=== PATIENT | female | born 1930 | race Caucasian/White ===

== ENCOUNTER 2016-11-28 07:44 | Inpatient (IN) | payer OTHER ==
[~2016-11-28] VITALS: Ht 157.5 cm; Wt 49.9 kg
--- NOTE | 2016-11-28 07:45 | NUR ---
PT BIB RA D/T MECHANICAL FALL AT HOME, C/O LEFT HIP PAIN. PATIENT IN BED, SAFETY AND COMFORT MEASURES PROVIDED, AWAITING MD ORDERS, WILL MONITOR.
--- NOTE | 2016-11-28 08:30 | NUR ---
XRAY TAKEN OF LEFT PELVIS AND LEFT ANKLE. WILL MONITOR.
[2016-11-28 11:03] LABS: BASOPHILS # (AUTO) 0.2 /CMM (0.0-0.2); BASOPHILS % (AUTO) 2.1 % (0.0-2.0); EOSINOPHILS % (AUTO) 0.1 % (0.0-6.0); HEMATOCRIT 45 % (33-45); HEMOGLOBIN 14.7 g/dL (11.5-14.8); LYMPHOCYTES # (AUTO) 0.7 /CMM (0.8-4.8); LYMPHOCYTES % (AUTO) 6.2 % (20.0-44.0); MEAN CORPUSCULAR HEMOGLOBIN 30 PG (26.0-33.0); MEAN CORPUSCULAR HGB CONC 33 g/dl (31.0-36.0); MEAN CORPUSCULAR VOLUME 91 fL (82-100); MONOCYTES # (AUTO) 0.6 /CMM (0.1-1.30); MONOCYTES % (AUTO) 5.1 % (2.0-12.0); NEUTROPHILS # (AUTO) 9.7 /CMM (1.8-8.9); NEUTROPHILS % (AUTO) 86.5 % (43.0-81.0); PLATELET COUNT (AUTO) 189 /CMM (150-450); RDW COEFFICIENT OF VARIATION 12.4 (11.5-15.0); RED BLOOD CELL COUNT(AUTO) 4.89 MIL/uL (4.0-5.2); WHITE BLOOD COUNT (AUTO) 11.2 K/uL (4.3-11.0)
[2016-11-28 11:10] LABS: CALCIUM, SERUM 8.9 mg/dL (8.5-10.1); CARBON DIOXIDE 27 mmol/L (21-32); CHLORIDE 108 mmol/L (98-107); CREATININE 1.1 mg/dL (0.6-1.3); GLUCOSE 100 mg/dL (74-106); SODIUM SERUM 143 mmol/L (136-145); UREA NITROGEN, BLOOD 27 mg/dL (7-18)
--- NOTE | 2016-11-28 11:13 | NUR ---
CALLED NURSING SUP. FOR MS BED
[2016-11-28 11:17] LABS: ALANINE AMINOTRANSFERASE 24 U/L (12-78); ALBUMIN 3.5 g/dL (3.4-5.0); ALKALINE PHOSPHATASE 49 U/L (46-116); ASPARTATE AMINOTRANSFERASE 25 U/L (15-37); BILIRUBIN,DIRECT 0.1 mg/dL (0.0-0.2); BILIRUBIN,TOTAL 0.7 mg/dL (0.2-1.0); TOTAL PROTEIN, SERUM 6.9 g/dL (6.4-8.2)
--- NOTE | 2016-11-28 11:30 | NUR ---
NEW IV STARTED, LAC, 18 GAUGE. H.L.
--- NOTE | 2016-11-28 11:38 | NUR ---
[facility] PAGED, DRY WALL APPLICATOR
[2016-11-28 11:59] LABS: APPEARANCE,URINE Clear (CLEAR); BILIRUBIN,URINE Negative (NEGATIVE); BLOOD, URINE Negative Ery/uL (NEGATIVE); COLOR,URINE Yellow (YELLOW); KETONES,URINE Trace (NEGATIVE); LEUKOCYTE ESTERASE ,URINE Negative (NEGATIVE); NITRITE, URINE Negative (NEGATIVE); PROTEIN,URINE Negative (NEGATIVE); UGLUCOSE Negative (NEGATIVE); UROBILINOGEN,URINE 0.2 EU/dL (0.2)
[2016-11-28] MEDS ORDERED: ALEN70TA45 PO (12:06)
[2016-11-28 12:08] LABS: BACTERIA,URINE None seen /HPF (None Seen); RBC,URINE 0-2 /HPF (0-2); WBC,URINE 0-3 /HPF (0-3)
[2016-11-28 12:09] LABS: SQUAMOUS EPITHELIAL CELL,UR Few /HPF (None Seen)
--- NOTE | 2016-11-28 12:10 | NUR ---
REPORT GIVEN TO RNMARYJANE. PATIENT TO BE ADMITTED TO [facility]. REMAINS STABLE, TRANSFERRED VIA STRETCHER.
[2016-11-28 12:30] VITALS: BP 128/66
--- NOTE | 2016-11-28 12:30 | NUR ---
MS RN NOTES RECEIVED PATIENT IN BED NO SOB OR ACUTE DISTRESS. NOTED WITH BRUISING TO BILATERAL LOWER EXTREMITIES AND UPPER EXTREMITAS. PATIENT REPORTS A FALL SHE SUFFERED AT HER [facility]. STATES SHE LIVES THERE BY HERSELF HAS A CAREGIVER NAME RENALDO WHO VISITS [facility] CAREGIVER WHO CARES FOR HER WHEN RENALDO IS NOT AVAILABLE. PATIENTS POWER OF DOROTHEA IS ALSO RENALDO. PATIENT IN STABLE CONDITION. WAITING FOR ORDERS. PERIPHERAL IV INTACT PATENT ON LEFT AC. BED IN LOW LOCKED POSITION. CALL LIGHT WITHIN REACH. ORIENTED TO ROOM. WILL CONTINUE TO MONITOR.
--- NOTE | 2016-11-28 13:30 | NUR ---
MS RN NOTES PATIENT SEEN AND EVALUATED BY DR. WASSERMAN ORDERS NOTED AND CARRIED OUT.
[2016-11-28] MEDS ORDERED: ACETAMINOPHEN 325 MG TABLET PO PRN (14:00)
[2016-11-28] MEDS ORDERED: ONDANSETRON HCL/PF 4 MG/2 ML VIAL IVP PRN (14:00)
[2016-11-28] MEDS ORDERED: Z GUARD REMEDY 2 OZ OINT TP PRN (14:00)
[2016-11-28] MEDS ORDERED: MAGNESIUM HYDROXIDE 30 ML UDC PO PRN (14:00)
[2016-11-28] MEDS ORDERED: MAG HYDROX/AL HYDROX/SIMETH 30 ML UDC PO PRN (14:00)
[2016-11-28] MEDS ORDERED: HYDROCODONE/APAP 5/325MG 1 EACH TABLET PO PRN (14:00)
[2016-11-28] MEDS ORDERED: IV SET PRIMARY PUMP SET 1 EA INFUS.SET MC ONE (14:35)
[2016-11-28] MEDS: PANTOPRAZOLE 40 MG TABLET.DR PO SCH (14:43)
[2016-11-28] MEDS: ENOXAPARIN SODIUM 40 MG/0.4 ML DISP.SYRIN SQ SCH (14:43)
[2016-11-28] MEDS: IV NS 0.9% 1,000 ML IV PRN (14:44)
[2016-11-28 16:00] VITALS: BP_SYST 116; BP_SYST 124; BP_DIAS 58; BP_DIAS 70
--- NOTE | 2016-11-28 18:06 | NUR ---
MS RN NOTES PATIENT IN BED RESTING NO SOB OR ACUTE DISTRESS NOTED. ALL DUE MEDICATIONS ADMINISTERED. ALL NEEDS MET PERIPHERAL IV INTACT PATENT ON LEFT AC. WILL ENDORSE CARE TO PM SHIFT.
--- NOTE | 2016-11-28 19:30 | NUR ---
ms rn note received patient awake and alert x2 in bed. Denies any pain or discomfort at this time. No respiratory distress or sob noted. iv site intact with no redness noted. Bed locked and in lowest position. side rails up, call light within reach. will continue to monitor.
[2016-11-28 20:00] VITALS: BP 121/56
--- NOTE | 2016-11-29 06:26 | NUR ---
MS RN NOTE PATIENT RESTING COMFORTABLY. ALL NEEDS MET AND ATTENDED TO. KEPT CLEAN DRY AND COMFORTABLE. WILL ENDORSE TO DAY SHIFT FOR DELIO.
[2016-11-29 06:43] LABS: BASOPHILS % (AUTO) 0.4 % (0.0-2.0); EOSINOPHILS # (AUTO) 0.2 /CMM (0.0-0.7); EOSINOPHILS % (AUTO) 2.4 % (0.0-6.0); HEMATOCRIT 38 % (33-45); LYMPHOCYTES % (AUTO) 16.1 % (20.0-44.0); MEAN CORPUSCULAR HEMOGLOBIN 32 PG (26.0-33.0); MEAN CORPUSCULAR HGB CONC 34 g/dl (31.0-36.0); MEAN CORPUSCULAR VOLUME 92 fL (82-100); MONOCYTES # (AUTO) 0.5 /CMM (0.1-1.30); MONOCYTES % (AUTO) 7.2 % (2.0-12.0); NEUTROPHILS # (AUTO) 4.8 /CMM (1.8-8.9); NEUTROPHILS % (AUTO) 73.9 % (43.0-81.0); PLATELET COUNT (AUTO) 140 /CMM (150-450); RDW COEFFICIENT OF VARIATION 13.3 (11.5-15.0); WHITE BLOOD COUNT (AUTO) 6.5 K/uL (4.3-11.0)
[2016-11-29 07:05] LABS: CHOLESTEROL 134 mg/dL (<200); HDL CHOLESTEROL 57 mg/dL (40-60); LDL 59 mg/dL (0-99); TRIGLYCERIDES 73 mg/dL (30-150)
[2016-11-29 07:09] LABS: ALANINE AMINOTRANSFERASE 21 U/L (12-78); ALBUMIN 2.8 g/dL (3.4-5.0); ALKALINE PHOSPHATASE 41 U/L (46-116); ASPARTATE AMINOTRANSFERASE 22 U/L (15-37); BILIRUBIN,TOTAL 0.6 mg/dL (0.2-1.0); CALCIUM, SERUM 8.2 mg/dL (8.5-10.1); CARBON DIOXIDE 25 mmol/L (21-32); CHLORIDE 110 mmol/L (98-107); CREATININE 0.9 mg/dL (0.6-1.3); GLUCOSE 97 mg/dL (74-106); MAGNESIUM 2.1 mg/dL (1.8-2.4); PHOSPHORUS 3.3 mg/dL (2.5-4.9); POTASSIUM 4.1 mmol/L (3.5-5.1); SODIUM SERUM 144 mmol/L (136-145); TOTAL PROTEIN, SERUM 5.9 g/dL (6.4-8.2); UREA NITROGEN, BLOOD 29 mg/dL (7-18)
[2016-11-29 08:00] VITALS: BP 118/65
[2016-11-29] MEDS: ENOXAPARIN SODIUM 40 MG/0.4 ML DISP.SYRIN SQ SCH (08:54)
[2016-11-29] MEDS: PANTOPRAZOLE 40 MG TABLET.DR PO SCH (08:54)
--- NOTE | 2016-11-29 08:55 | NUR ---
PATIENT NOTED IN STABLE CONDITION .NO FALL.PATIENT IS NOTED RESTING IN BED.TEACHING GIVEN TO PATIENT TO CALL FOR HELP WHEN SHE NEEDS ASSISTANCE ,NOT TO TRY TO GET UP BECAUSE OF FEAR OF FALL.PATIENT VERBALIZED UNDERSTANDING.PATIENT STABLE.
[2016-11-29 16:00] VITALS: BP 131/73
[2016-11-29 20:00] VITALS: BP 124/46
--- NOTE | 2016-11-29 20:06 | NUR ---
MS LOUISA INITIAL NOTES SEEN PT AWAKE AND ALERT LYING DOWN IN BED RESPIRATION EVEN AND NON-LABORED, NOT IN ANY ACUTE DISTRESS NOTED. SKIN WARM TO TOUCH, , CHECKED IV LINE PATENT BUT FOUND OUT DRESSING NEEDS TO BE CHANGED. SPOKE TO THE PT AND SHE UNDERSTOOD WELL. KEPT HER WARM AND COMFORTABLE AT ALL TIMES. WILL CONTINUE TO MONITOR. PLACE CALL LIGHT AT REACH. BED ALARM SET FOR SAFETY.
[2016-11-29] MEDS: ZOLPIDEM TARTRATE 5 MG TABLET PO PRN (23:09)
[2016-11-29] MEDS: IV NS 0.9% 1,000 ML IV PRN (23:10)
--- NOTE | 2016-11-29 23:10 | NUR ---
MS LOUISA NOTES ELDER GIVEN PER PT REQUESTED , SHE STATED SHE'S NOT SLEEPING WELL FOR 2 DAYS. EDUCATE THE SIDE EFFECT OF THIS MEDICATION AND PT UNDERSTOOD WELL. KEPT HER WARM AND COMFORTABLE AT ALL TIMES. PLACE CALL LIGHT AT REACH.
--- NOTE | 2016-11-30 02:00 | NUR ---
SENIOR TECHNICAL PROJECT MANAGER/NOTES PT SLEEPING AT THIS TIME WITHOUT ANY ACUTE DISTRESS NOTED. IVF STILL INFUSING ON HER LEFT AC . WILL CONTINUE TO MONITOR.
--- NOTE | 2016-11-30 07:03 | NUR ---
MS DIRECTOR RETAIL BRAND DEVELOPMENT CLOSING NOTES PT BACK TO SLEEP AFTER MORNING CARE DONE. ALL DUE MEDS GIVEN AND STABLE ALEXANDR THE NIGHT. KEPT HER WARM AND COMFORTABLE AT ALL TIMES. BED ALARM SET FOR PT SAFETY. WILL ENDORSE TO AM NURSE.
[2016-11-30 07:10] LABS: CARBON DIOXIDE 23 mmol/L (21-32); CHLORIDE 110 mmol/L (98-107); CREATININE 0.9 mg/dL (0.6-1.3); GLUCOSE 98 mg/dL (74-106); POTASSIUM 3.9 mmol/L (3.5-5.1); SODIUM SERUM 144 mmol/L (136-145); UREA NITROGEN, BLOOD 23 mg/dL (7-18)
--- NOTE | 2016-11-30 07:10 | NUR ---
MS RN OPENING NOTES RECEIVED PT. FROM NIGHTSHIFT NURSE IN STABLE CONDITION. PT. IS AWAKE AND SITTING COMFORTABLY IN BED. A/O X2-3. NO SOB OR SIGNS OF DISTRESS NOTED. NO COMPLAINTS OF PAIN AT THIS TIME. IV PRESENT ON LEFT AC 18G PATENT AND INTACT. NS IS CURRENTLY INFUSING AT 75ML/HR. PT. IS TOLERATING INFUSION WELL. NO REDNESS OR SIGNS OF INFILTRATION NOTED. PT. DENIES ANY PAIN AT THIS TIME. 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 BED IN LOW LOCKED POSITION, SIDE RAILS UP X3, CALL LIGHT ON RIGHT SIDE AND WITHIN REACH. ALL SAFETY MEASURES IN PLACE. WILL CONTINUE TO MONITOR.
[2016-11-30 08:00] VITALS: BP 123/73
[2016-11-30] MEDS: PANTOPRAZOLE 40 MG TABLET.DR PO SCH (09:02)
[2016-11-30] MEDS: ENOXAPARIN SODIUM 40 MG/0.4 ML DISP.SYRIN SQ SCH (09:08)
[2016-11-30 15:36] VITALS: BP 123/73
[2016-11-30 15:44] VITALS: BP 132/57
--- NOTE | 2016-11-30 18:29 | NUR ---
MS RN CLOSING NOTES PT. REMAINS IN STABLE CONDITION. A/O X2-3. NO COMPLAINTS OF PAIN THROUGHOUT SHIFT. DENIES ANY PAIN AT THIS TIME. NO ACUTE CHANGES IN CONDITION DURING SHIFT. ALL NEEDS MET AND ANTICIPATED FOR. ALL ORDERS CARRIED OUT ACCORDINGLY. ALL SAFETY MEASURES REMAIN IN PLACE. WILL ENDORSE TO NIGHTSHIFT NURSE FOR DELIO
--- NOTE | 2016-11-30 19:30 | NUR ---
MS DINING SERVICE WORKER INITAL NOTES SEEN PT IN BED AWAKE AND ALERT DOING HER EXERCISE LIKE MOVING HER LEGS AND ARM , DENIES ANY PAIN OR ANY DISCOMFORT. NOT IN ANY ACUTE DISTRESS NOTED. IVF STILL INFUSING IN HER LEFT WRIST PATENT AND INTACT. KEPT HER COMFORTABLE AT ALL TIMES. WILL CONTINUE TO MONITOR. PLACE CALL LIGHT AT REACH.
[2016-11-30 20:00] VITALS: BP 146/70
[2016-11-30] MEDS: ZOLPIDEM TARTRATE 5 MG TABLET PO PRN (21:43)
--- NOTE | 2016-11-30 23:09 | NUR ---
MS METALS ANALYST CLOSING NOTES PT SLEEPING COMFORTABLY IN BED AFTER AMBIEN GIVEN. NO SIGNS OF ANY ACUTE DISTRESS NOTED. IVF STILL INFUSING .KEPT HER WARM AND COMFORTABLE AT ALL TIMES. BED ALARM SET FOR SAFETY. ENDORSE TO ANOTHER NURSE TARA/RN FOR CONTINUITY OF CARE. PLACE CALL LIGHT AT REACH.
--- NOTE | 2016-11-30 23:10 | NUR ---
MS RN OPENING NOTES: RECEIVED PT IN BED FROM LOUISA MCGOVERN AND IS ASLEEP AFTER BEING ENDORSED THAT PT RECEIVED AMBIEN. NO SIGNS OR SYMPTOMS IF DISTRESS NOTED. PT HAS IV ON L WRIST #22G AND IS PATENT AND INTACT AND IS BEING INFUSED WITH IV NS 1,000ML AT 75ML/HR. CALL LIGHT WITHIN PT'S REACH. BED KEPT IN LOCKED, LOWEST POSITION, AND SIDE RAILS X 2 UP. WILL CONTINUE TO MONITOR PT.
[2016-12-01] MEDS: IV NS 0.9% 1,000 ML IV PRN (03:09)
--- NOTE | 2016-12-01 06:52 | NUR ---
MS RN CLOSING NOTES: ALL NEEDS WERE ATTENDED AND ANTICIPATED FOR. PT IS AWAKE, AND A/OX2-3. PT KEPT CLEAN, DRY, AND COMFORTABLE. CALL LIGHT WITHIN PT'S REACH. BED KEPT IN LOCKED, LOWEST POSITION, AND SIDE RAILS X 2 UP. PT HAS L WRIST #22G AND IS PATENT AND INTACT AND IS BEING INFUSED WITH IV NS 1,000ML AT 75ML/HR. WILL ENDORSE TO AM NURSE FOR DELIO.
--- NOTE | 2016-12-01 07:23 | NUR ---
MS/RN OPENING NOTES PT. IS IN BED AWAKE, A&OX2-3. NO SOB, BREATHING ON ROOM AIR UNLABORED AND EVENLY. NO S/S OF ACUTE DISTRESS. PT. HAS IV FLUIDS RUNNING AT 75 ML/HR. BED IS IN LOW POSITION, 2 SIDE RAILS UP, AND CALL LIGHT WITHIN REACH. WILL CONTINUE TO ASSESS AND MONITOR.
[2016-12-01 08:00] VITALS: BP 138/112
[2016-12-01] MEDS: PANTOPRAZOLE 40 MG TABLET.DR PO SCH (09:04)
[2016-12-01] MEDS: ENOXAPARIN SODIUM 40 MG/0.4 ML DISP.SYRIN SQ SCH (09:10)
--- NOTE | 2016-12-01 12:00 | NUR ---
MS/RN NOTES PER TAMIKA LEONARD ADULT EDUCATOR, PT. WAS RECOMMENDED TO HAVE PT. DISCHARGED WITH HOME HEALTH FOR PHYSICAL THERAPY. PT.'S DPOA REFUSED TO HAVE HOME HEALTH WITH PHYSICAL THERAPY VISITS. PT.'S DPOA AGREED TO HAVE PT. GO BACK TO [facility].
[2016-12-01 16:00] VITALS: BP 135/71
--- NOTE | 2016-12-01 16:46 | NUR ---
MS/DRY DRUG WORKER PT. A&OX3, IN MEDICALLY STABLE CONDITION. PT. WAS DISCHARGED HOME TO SELF CARE. PT. LEFT ROOM IN A WHEEL CHAIR WITH RENALDO MAYER. PROVIDED RENALDO WITH DISCHARGE INSTRUCTIONS, AND UNDERSTANDING WAS VERBALIZED. BELONGINGS CHECKED AND LIST WAS SIGNED. REMOVED LEFT HAND IV WITHOUT COMPLICATIONS, AND ID BAND WAS REMOVED.
[2016-12-02] MEDS ORDERED: ALENDRONATE 70 MG TABLET PO SCH (07:30)
== END 2016-12-01 17:11 | disposition home health service (06) | DRG 58 ==
LOC: ER 07:46 → MED 12:22
PROVIDERS: ADMIT Internal Medicine; ATTEND Internal Medicine
DX: G11.9 Hereditary ataxia, unspecified (principal); N17.0 Acute kidney failure with tubular necrosis; G93.40 Encephalopathy, unspecified; E44.0 Moderate protein-calorie malnutrition; D72.829 Elevated white blood cell count, unspecified; I10 Essential (primary) hypertension; Z96.642 Presence of left artificial hip joint; Y92.009 Unspecified place in unspecified non-institutional (private) residence as the place of occurrence of the external cause; W18.30XA Fall on same level, unspecified, initial encounter; R53.1 Weakness; M81.0 Age-related osteoporosis without current pathological fracture; E88.09 Other disorders of plasma-protein metabolism, not elsewhere classified; R29.6 Repeated falls; Z68.20 Body mass index [BMI] 20.0-20.9, adult; H53.9 Unspecified visual disturbance
CPT/HCPCS: 36415; 71010-TC; 72170-TC; 73610-TC; 80048-TC; 80053-TC; 80061-TC; 80076-TC; 81000-TC; 82746; 83735-TC; 84100-TC; 84443-TC; 84484-TC; 85025-TC; 87081-TC; 97001-TC; 97116-TC; 97530-TC; A4606; A6402; J1650; J7030; Z7610

== ENCOUNTER 2017-12-13 11:21 | Emergency (ER) | payer MEDICARE, OTHER ==
[~2017-12-13] VITALS: Ht 160 cm; Wt 52.2 kg
[~2017-12-13 11:21] MED LIST: ALEN70TA45 PO
[2017-12-13 11:25] VITALS: BP 106/60
== END 2017-12-13 12:39 | disposition home or self-care (01) ==
LOC: ER 11:24
DX: K64.5 Perianal venous thrombosis (principal)
CPT/HCPCS: 99283; A4606; Z7610

== ENCOUNTER 2019-11-22 18:08 | Inpatient (IN) | payer MEDICARE, OTHER ==
[~2019-11-22] VITALS: Ht 160 cm; Wt 56.0 kg
[~2019-11-22 18:08] MED LIST changes: -ALEN70TA45 PO; +ALEN70TA6 PO
--- NOTE | 2019-11-22 18:10 | NUR ---
BIBRA 83 FROM HOME, ALTERED THAN USUAL. 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 YG=[id number]. TO ER BED 9, HOOKED TO MONITOR, CHANGED TO HOSP GOWN, WARM BLANKET PROVIDED, PATIENT AWAKE BUT DOES NOT ANSWER QUESTIONS , BREATHING EVEN AND UNLABORED. AWAITING MD FINNEY.
[2019-11-22] MEDS ORDERED: AMLO2.5T4 PO (18:19)
[2019-11-22] MEDS ORDERED: LORA-258 PO (18:19)
[2019-11-22] MEDS ORDERED: SERT25TA5 PO (18:19)
[2019-11-22] MEDS ORDERED: GABA-532 PO (18:19)
--- NOTE | 2019-11-22 18:21 | NUR ---
URINE SAMPLE COLLECTED VIA STRAIGHT CATH, SENT TO LAB.
[2019-11-22 18:48] LABS: BASOPHILS # (AUTO) 0.1 /CMM (0.0-0.2); BASOPHILS % (AUTO) 0.9 % (0.0-2.0); EOSINOPHILS % (AUTO) 0.8 % (0.0-6.0); HEMATOCRIT 37 % (33-45); HEMOGLOBIN 12.2 g/dL (11.5-14.8); LYMPHOCYTES # (AUTO) 0.5 /CMM (0.8-4.8); LYMPHOCYTES % (AUTO) 7.3 % (20.0-44.0); MEAN CORPUSCULAR HGB CONC 33 g/dl (31.0-36.0); MEAN CORPUSCULAR VOLUME 90 fL (82-100); MONOCYTES # (AUTO) 0.7 /CMM (0.1-1.30); MONOCYTES % (AUTO) 9.4 % (2.0-12.0); NEUTROPHILS # (AUTO) 5.9 /CMM (1.8-8.9); NEUTROPHILS % (AUTO) 81.6 % (43.0-81.0); PLATELET COUNT (AUTO) 157 /CMM (150-450); RED BLOOD CELL COUNT(AUTO) 4.15 MIL/uL (4.0-5.2); WHITE BLOOD COUNT (AUTO) 7.2 K/uL (4.3-11.0)
[2019-11-22 18:52] LABS: APPEARANCE,URINE Slightly Cloudy (CLEAR); BILIRUBIN,URINE Negative (NEGATIVE); BLOOD, URINE Trace-intact Ery/uL (NEGATIVE); COLOR,URINE Light yellow (YELLOW); KETONES,URINE Negative (NEGATIVE); LEUKOCYTE ESTERASE ,URINE Small (NEGATIVE); NITRITE, URINE Negative (NEGATIVE); PROTEIN,URINE 30 mg/dl (NEGATIVE); UGLUCOSE Negative (NEGATIVE); UROBILINOGEN,URINE 0.2 EU/dL (0.2)
[2019-11-22 19:06] LABS: BACTERIA,URINE Few /HPF (None Seen); COARSE GRANULAR CASTS,URINE Few /LPF (None Seen)
--- NOTE | 2019-11-22 19:11 | NUR ---
REPORT GIVEN TO FEI MIRAMONTES FOR DELIO
[2019-11-22 19:12] LABS: CALCIUM, SERUM 8.5 mg/dL (8.5-10.1); CARBON DIOXIDE 27 mmol/L (21-32); CHLORIDE 106 mmol/L (98-107); CREATININE 1.2 mg/dL (0.6-1.3); GLUCOSE 132 mg/dL (74-106); POTASSIUM 4.3 mmol/L (3.5-5.1); SODIUM SERUM 140 mmol/L (136-145); UREA NITROGEN, BLOOD 28 mg/dL (7-18)
[2019-11-22 19:16] LABS: ALANINE AMINOTRANSFERASE 16 U/L (12-78); ALBUMIN 3.4 g/dL (3.4-5.0); ALKALINE PHOSPHATASE 52 U/L (46-116); ASPARTATE AMINOTRANSFERASE 21 U/L (15-37); BILIRUBIN,DIRECT 0.1 mg/dL (0.0-0.2); BILIRUBIN,TOTAL 0.3 mg/dL (0.2-1.0); TOTAL PROTEIN, SERUM 6.3 g/dL (6.4-8.2)
[2019-11-22] MEDS ORDERED: IV NS 0.9% 1,000 ML IV ONE (19:30)
[2019-11-22] MEDS ORDERED: CEFTRIAXONE 1GM BAG (ER ONLY) 1 GM/50 ML PIGGYBACK IV ONE (19:30)
[2019-11-22] MEDS ORDERED: CEFTRIAXONE 1GM BAG (ER ONLY) 50 ML IV ONE (19:41)
[2019-11-22 20:00] VITALS: BP 155/78
--- NOTE | 2019-11-22 20:04 | NUR ---
EPIC PAGED DOMENIC
[2019-11-22] MEDS ORDERED: CEFTRIAXONE 1 G in IV D5W 50 ML IV SCH (20:30)
[2019-11-22] MEDS ORDERED: ACETAMINOPHEN 325 MG TABLET PO PRN (20:30)
[2019-11-22] MEDS ORDERED: HYDROCODONE/APAP 5/325MG 1 EACH TABLET PO PRN (20:30)
[2019-11-22] MEDS ORDERED: ONDANSETRON HCL/PF 4 MG/2 ML VIAL IVP PRN (20:30)
[2019-11-22] MEDS ORDERED: MAGNESIUM HYDROXIDE 30 ML UDC PO PRN (20:30)
[2019-11-22] MEDS ORDERED: MAG HYDROX/AL HYDROX/SIMETH 30 ML UDC PO PRN (20:30)
[2019-11-22] MEDS ORDERED: Z GUARD REMEDY 2 OZ OINT TP PRN (20:30)
--- NOTE | 2019-11-22 21:01 | NUR ---
REPORT GIVEN TO SHARRI MIRAMONTES FOR DELIO.
--- NOTE | 2019-11-22 21:19 | NUR ---
PATIENT TAKEN UP TO ROOM.
--- NOTE | 2019-11-22 21:25 | NUR ---
RN NOTES RECEIVED PT. FROM ER WITH DX. OF UTI, AWAKE, CONFUSED, NOTICED LEFT SIDED WEAKNESS, NOT IN DISTRESS, ADMISSION ASSESSMENT DONE, CALL LIGHT WITHIN REACH, SIDERAILSUPX2, BED IN LOW POSITION, CONTINUE TO MONITOR
[2019-11-22 21:30] VITALS: BP 155/78
--- NOTE | 2019-11-22 21:45 | NUR ---
RN NOTES ROCEPHIN 1 GM WAS NOT ADMINISTERED, PT. JUST RECEIVED IN ER AT 1945
[2019-11-22] MEDS: IV NS 0.9% 1,000 ML IV PRN (22:22)
--- NOTE | 2019-11-22 23:30 | NUR ---
RN NOTES DR. SHETH CAME AND CHECKED THE PATIENT
--- NOTE | 2019-11-22 23:45 | NUR ---
RN NOTES NOTICED PATIENT VOMITED SMALL AMOUNT OF EMESIS- ZOFRAN 4 MG IV GIVEN ORDERED
[2019-11-23 06:34] LABS: BASOPHILS % (AUTO) 0.2 % (0.0-2.0); HEMATOCRIT 37 % (33-45); HEMOGLOBIN 11.7 g/dL (11.5-14.8); LYMPHOCYTES # (AUTO) 0.2 /CMM (0.8-4.8); LYMPHOCYTES % (AUTO) 3.2 % (20.0-44.0); MEAN CORPUSCULAR HGB CONC 32 g/dl (31.0-36.0); MEAN CORPUSCULAR VOLUME 93 fL (82-100); MONOCYTES # (AUTO) 0.4 /CMM (0.1-1.30); MONOCYTES % (AUTO) 6.3 % (2.0-12.0); NEUTROPHILS # (AUTO) 6.2 /CMM (1.8-8.9); NEUTROPHILS % (AUTO) 90.3 % (43.0-81.0); PLATELET COUNT (AUTO) 125 /CMM (150-450); RED BLOOD CELL COUNT(AUTO) 4.03 MIL/uL (4.0-5.2); WHITE BLOOD COUNT (AUTO) 6.9 K/uL (4.3-11.0)
[2019-11-23 06:46] LABS: CALCIUM, SERUM 8.3 mg/dL (8.5-10.1); MAGNESIUM 2.5 mg/dL (1.8-2.4); PHOSPHORUS 3.9 mg/dL (2.5-4.9); POTASSIUM 4.6 mmol/L (3.5-5.1)
--- NOTE | 2019-11-23 06:50 | NUR ---
RN NOTES SLEEPING BUT AROUSABLE, MORNING CARE RENDERED, NO PAIN NOTED, NOS SOB, MORNING CARE RENDERED,BED LOW IN POSITION, CALL LIGHT WITHIN REACH, SIDERAILSUPX2, PT. NEEDS ATTENDED
--- NOTE | 2019-11-23 07:45 | NUR ---
M/S RN OPENING NOTES RECEIVED PT ON BED,A/OX1, ASLEEP BUT EASILY AROUSABLE. RESPIRATION EVEN AND NON LABORED WITH NO ACUTE RESPIRATORY DISTRESS, ON ROOM AIR SATING 93%, HOB ELEVATED. ABD SOFT AND NON DISTENDED WITH ACTIVE BOWEL SOUNDS. SKIN WARM TO TOUCH AND DRY, BLE NON PITTING EDEMA, ELEVATED. NO S/SX OF PAIN AND DISCOMFORT. IV SITE AT RIGHT AC #18, LEFT FA #20 PATENT IN FLUSHING, NS RUNNING AT 75 ML/HR. BED IN LOW LOCKED POSITION, SR X2 UP FOR SAFETY, NEAR NURSES STATION FOR CLOSE MONITORING.WILL CONT PLAN OF CARE.
[2019-11-23 08:20] VITALS: BP 113/62
[2019-11-23] MEDS: GABAPENTIN 100 MG CAPSULE PO SCH ×3 (08:30→17:00)
[2019-11-23] MEDS: AMLODIPINE BESYLATE 2.5 MG TABLET PO SCH (08:30)
--- NOTE | 2019-11-23 09:25 | NUR ---
M/S RN NOTES PT SEEN AND EVALUATED BY DR. ARROYO FOR NEPHRO CONSULT PER . ORDER PLACE ORDERED. DUPLEX VENOUS STUDY TO BLE ORDER, READ BACK NOTED AND CARRIED OUT DUE TO NON PITTING EDEMA. WILL CONT TO MONITOR
--- NOTE | 2019-11-23 10:20 | NUR ---
M/S RN NOTES PT SEEN AND EVALUATED BY CIARAN DANIELS. REPORT GIVEN TO DATABASE DESIGNER, PT HASN'T EATEN BREAKFAST DUE TO DEEP SLEEP, SNORES, VS IN STABLE, NO NEW ORDERS AT THIS TIME. PT TO BE REFERRED TO ID. DATABASE DESIGNER TO CONTACT THE CONSULT. WILL CONTINUE TO MONITOR
--- NOTE | 2019-11-23 13:47 | NUR ---
M/S RN NOTES PAGED CIARAN PILLOW AGENT FOR RESULTS: BLOOD CULTURE WITH POSITIVE GRAM STAIN COCCI AND + DVT ON BOTH LEGS PER DUPLEX VENOUS SCAN. WAITING FOR RESPONSE FOR NEW ORDERS
--- NOTE | 2019-11-23 13:51 | NUR ---
M/S RN NOTES PT GABAPENTIN NOT GIVEN DUE TO DEEP SLEEP. PT WITH EPISODES OF EYES OPEN THEN GOES BACK TO SLEEP. HOB ELEVATED D/T RISK FOR ASPIRATION.
[2019-11-23] MEDS: IV NS 0.9% 1,000 ML IV PRN (13:56)
--- NOTE | 2019-11-23 14:00 | NUR ---
M/S RN NOTES CIARAN RN CLINICAL RESEARCH RESPONDED, WAITING FOR IMAGING REPORT FOR POSSIBLE LOVENOX.
--- NOTE | 2019-11-23 14:49 | NUR ---
M/S RN NOTES DUPLEX VENOUS IMAGING RESULT REPORT GIVEN TO DARBY OLERICULTURIST. NEW ORDER OF LOVENOX PER PHARMACY DOSING. ORDER READ BACK NOTED AND CARRIED OUT. WILL CONT TO MONITOR CARE
[2019-11-23] MEDS: ENOXAPARIN SODIUM 60 MG/0.6 ML DISP.SYRIN SQ SCH (15:07)
[2019-11-23 16:47] VITALS: BP 186/89
--- NOTE | 2019-11-23 17:13 | NUR ---
M/S RN NOTES REPORT GIVEN TO MICHAEL GREIGE GOODS MARKER, SBP 170'S / DBP 80'S. HR 80'S. AFEBRILE, SATING 96% IN ROOM AIR. PT STILL ASLEEP AND HARD TO WAKE UP. PO MEDS NOT ADMINISTERED. IV NS AT 75 ML/HR ORDER OBTAINED HYDRALAZINE 10 MG IV Q6 PRN FOR SBP > 160 MM HG. ORDER READ BACK NOTED AND CARRIED OUT.
[2019-11-23] MEDS ORDERED: FEE PK DOSING 1 MIN EA MC ONE (17:15)
[2019-11-23] MEDS: hydrALAZINE HCL IV 20 MG VIAL IV PRN (17:30)
--- NOTE | 2019-11-23 17:53 | NUR ---
M/S RN NOTES BP RE-CHECKED AFTER ADMINISTERING HYDRALAZINE 10 MG IV, 143/87 MM HG, HR 98. WILL CONT TO MONITOR
[2019-11-23] MEDS ORDERED: CEFTRIAXONE 1 G in IV D5W 50 ML IV SCH (18:00)
[2019-11-23] MEDS ORDERED: VANCOMYCIN 0.75 GM in IV D5W 250 ML IV SCH (18:00)
[2019-11-23 18:02] VITALS: BP 143/87
--- NOTE | 2019-11-23 18:45 | NUR ---
M/S RN CLOSING NOTES PT A/O X1, ASLEEP THROUGHOUT THE SHIFT, HOB ELEVATED AT ALL TIMES, SUCTION NEEDED DUE TO THIN SECRETION. PT NOT IN ACUTE RESPIRATORY DISTRESS, ON ROOM AIR SATING 96%. PT HAS NO S/SX OF PAIN AND DISCOMFORT. SKIN WARM TO TOUCH AND DRY. ABD SOFT AND NON DISTENDED, NO BM TODAY. IV SITE AT RIGHT AC #18 H/L, LFA #20 RUNNING NS AT 75 ML/HR. BED IN LOW LOCKED POSITION, SR X2 UP FO SAFETY. BOTH LEGES ELEVATED DUE TO EDEMA, + DVT. ENDORSED PT CARE TO NEXT SHIFT.
--- NOTE | 2019-11-23 19:49 | NUR ---
MS RN OPENING NOTES RECEIVED PATIENT RESTING IN BED COMFORTABLY; A/OX1; BREATHING EVEN AND UNLABORED; PATIENT TOLERATING ROOM AIR WELL; NO SOB NOTED; NO DISTRESS NOTED; PER AM SHIFT, PATIENT HAS BEEN SLEEPING MOST OF THE TIME; WILL CONT TO MONITOR; R AC #18, LFA #20 INTACT AND PATENT, FLUSHING WELL; NO S/S OF REDNESS OR INFILTRATION NOTED; NS @ 75ML/HR INFUSING; PATIENT TOLERATING IVF WELL; SAFETY PRECAUTIONS IMPLEMENTED; BED LOCKED IN LOW POSITION; SIDE RAILS X2; CALL LIGHT WITHIN REACH; WILL CONT PLAN OF CARE AND CONT TO MONITOR
[2019-11-23 20:00] VITALS: BP 115/72
[2019-11-24] VITALS (10 sets, daily range): BP systolic 111–192; BP diastolic 46–82
[2019-11-24] MEDS: ENOXAPARIN SODIUM 60 MG/0.6 ML DISP.SYRIN SQ SCH (02:46)
[2019-11-24] MEDS: IV NS 0.9% 1,000 ML IV PRN (04:45)
--- NOTE | 2019-11-24 06:30 | NUR ---
MS RN NOTES MS RN NOTES PATIENT HAS CRACKLES BUT PATIENT TOLERATING ROOM AIR WELL AT 95%; NO SOB NOTED; CONTACTED RT FOR DEEP SUCTION; PATIENT SUCTIONED NASALLY AND ORALLY; TONGUE MAY BLOCK AIRWAY AND PATIENT HAS FLUID OVERLOAD, IVF STOPPED; MD NOTIFIED; ORDERED STAT ABG AND CXR;
--- NOTE | 2019-11-24 06:32 | NUR ---
MS RN NOTES RESPIRATORY THERAPISTS AT BEDSIDE, COLLECTING ABG SAMPLE; AWAITING RESULTS
[2019-11-24 06:40] LABS: SITE, ABG Right Radial
[2019-11-24 06:41] LABS: ABG BASE EXCESS -2.1 mmol/L; ABG OXYGEN SATURATION 95.6 % (92.0-98.5); ABG PCO2 24.4 mmHg (35.0-45.0); ABG PH 7.517 (7.350-7.450); ABG PO2 72.5 mmHg (75.0-100.0); COHb 0.5 % (0.5-1.5); O2Hb 95.1 % (94.0-97.0); VENT MODE, BG Room Air
--- NOTE | 2019-11-24 07:05 | NUR ---
MS RN OPENING NOTES DURING CHANGE OF SHIFT REPORT, NOTED PATIENT NON-RESPONSIVE TO DEEP STIMULI, WITH LABORED BREATHING AND CRACKLES HEARD AUDIBLY. CALLED RT AND SUCTIONED PATIENT, AND OBTAINED SMALL CLEAR THIN SECRETIONS. STERNAL RUB DONE BUT TO NO AVAIL. NOTED SPO2 ROOM AIR 96%. CALLED RAPID RESPONSE.
[2019-11-24 07:06] LABS: BASOPHILS % (AUTO) 0.1 % (0.0-2.0); HEMATOCRIT 37 % (33-45); HEMOGLOBIN 11.7 g/dL (11.5-14.8); LYMPHOCYTES # (AUTO) 0.3 /CMM (0.8-4.8); LYMPHOCYTES % (AUTO) 1.8 % (20.0-44.0); MEAN CORPUSCULAR HGB CONC 32 g/dl (31.0-36.0); MEAN CORPUSCULAR VOLUME 90 fL (82-100); MONOCYTES # (AUTO) 1.4 /CMM (0.1-1.30); MONOCYTES % (AUTO) 7.9 % (2.0-12.0); NEUTROPHILS # (AUTO) 15.6 /CMM (1.8-8.9); NEUTROPHILS % (AUTO) 90.2 % (43.0-81.0); PLATELET COUNT (AUTO) 210 /CMM (150-450); RED BLOOD CELL COUNT(AUTO) 4.08 MIL/uL (4.0-5.2); WHITE BLOOD COUNT (AUTO) 17.3 K/uL (4.3-11.0)
[2019-11-24 07:18] LABS: ALBUMIN 3.4 g/dL (3.4-5.0); BILIRUBIN,TOTAL 0.7 mg/dL (0.2-1.0); CALCIUM, SERUM 8.7 mg/dL (8.5-10.1); CREATININE 1.1 mg/dL (0.6-1.3); MAGNESIUM 2.4 mg/dL (1.8-2.4); PHOSPHORUS 3.3 mg/dL (2.5-4.9); POTASSIUM 3.7 mmol/L (3.5-5.1); TOTAL PROTEIN, SERUM 6.9 g/dL (6.4-8.2)
--- NOTE | 2019-11-24 07:56 | NUR ---
MS RN CLOSING NOTES PATIENT NON-RESPONSIVE TO DEEP STIMULI, STARTED TO SOUND MORE CRACKLY 0600. PATIENT WAS DEEP SUCTIONED AND CALLED RT. SPO2 95-96% ON ROOM AIR, CONTINUED TO MONITOR; DURING CHANGE OF SHIFT REPORT, PATIENT STARTED TO SOUND WORSE, BREATHING LABORED; RAPID CALLED [id number].DURING CHANGE OF SHIFT REPORT BECAUSE PATIENT STARTED TO SOUND MORE CRACKLY, BREATHING LABORED; A/OX1, UNRESPONSIVE TO DEEP STIMULI; PUPILS SLUGGISH; PATIENT TOLERATING ROOM AIR; SPO2 100%; RAPID RESPONSE TEAM ARRIVED TO BEDSIDE @ 0710; VITAL SIGNS: BP: 192/73, P: 79, RR: 40, SPO2: 100% ON 2LPM VIA NC; TEMP: 99.6F; RAPID ENDED 0715, NO NEW ORDERS MADE. DR. CIARAN SEQUEIRA NOTIFIED; MD AWARE; MD ORDERED CT SCAN OF HEAD; AWAITING RESULTS BEFORE TRANSFERRING PATIENT, PER MD TRANSFERRING PATIENT TO DIFFERENT UNIT DEPENDS ON CT SCAN RESULTS; R AC #18, L FA # 20 INTACT AND PATENT, FLUSHING WELL, NO S/S OF REDNESS OR INFILTRATION; IVF STOPPED D/T FLUID OVERLOAD; ALL NEEDS RENDERED; SAFETY PRECAUTIONS IMPLEMENTED; BED LOCKED IN LOW POSITION; SIDE RAILS X2; ENDORSED TO ONCOMING SHIFT; PATIENT WHEELED TO WITH RADIOLOGY, ACCOMPANIED BY RADIOLOGY ROSE AND FE JIANG;
--- NOTE | 2019-11-24 08:18 | NUR ---
MS RN NOTE REPORT GIVEN TO ICU NURSE AT BEDSIDE BY FE RICE.
--- NOTE | 2019-11-24 08:30 | NUR ---
RN NOTES PATIENT TRANSFERRED TO ICU 257, PER ACLS PROTOCOL;
--- NOTE | 2019-11-24 08:30 | NUR ---
RN INITIAL NOTES RECEIVED PT VIA BED FROM CT, PT DOES NOT OPEN EYES, NOT FOLLOWING COMMANDS, NOT RESPONDING TO PAIN. PLACED ON 02 VIA NC AT 6LPM. HOB ELEVATED. PT CONNECTED TO MONITOR. CT HEAD SHOWS LARGE RIGHT SIDED INTRACEREBRAL HEMORRHAGE. GOLDIE SEQUEIRA NP AWARE. GOLF CLUB MANAGER SPOKE WITH RENALDO ENRIQUEZ) OVER THE PHONE AND DISCUSSED PT'S CONDITION. CODE STATUS CHANGE TO COMFORT CARE. WILL CLOSELY MONITOR
[2019-11-24] MEDS: AMLODIPINE BESYLATE 2.5 MG TABLET PO SCH (09:00)
[2019-11-24] MEDS: GABAPENTIN 100 MG CAPSULE PO SCH (09:00)
[2019-11-24] MEDS: hydrALAZINE HCL IV 20 MG VIAL IV PRN (09:36)
[2019-11-24] MEDS ORDERED: LORAZEPAM INJ 2 MG/ML VIAL IV PRN (10:00)
[2019-11-24] MEDS ORDERED: MORPHINE SULFATE INJ 2 MG/ML DISP.SYRIN IV PRN (10:00)
--- NOTE | 2019-11-24 11:49 | NUR ---
RN NOTE PT DNR STATUS. PT BECAME BRADYCARDIC, PROCEEDING TO ASYSTOLE PER MONITOR. FOUND PT PULSELESS, APNEIC, WITH FIXED PUPILS. PRONOUNCED AT 1149. FAMILY WILL BE NOTIFIED BY PHONE AT A LATER TIME. NO ANSWER AT NUMBER LISTED. NOTIFIED GOLDIE HENDRIX. PT'S DENTURES (BOTH UPPER AND LOWER) LEFT IN PT'S MOUTH. NECKLACE AND CLOTHING SENT WITH PT TO [facility].
--- NOTE | 2019-11-24 11:50 | NUR ---
RN NOTES 1149 PT NOTED ASYSTOLE IN THE MONITOR. NO RISE AND FALL OF CHEST NOTED. NO PALPABLE PULSE NOTED. BP UNAPPRECIATED. PRONOUNCED BY 2 RNS AT BEDSIDE. GOLDIE SEQUEIRA NP NOTIFIED. CALLED [facility], CASE # [id number].
--- NOTE | 2019-11-24 12:00 | NUR ---
RN NOTES CALLED RENALDO HOGUE (DPNEGRITA) #[phone], UNABLE TO REACH. WILL TRY AGAIN IN A BIT. FRANCES AMEZCUA AWARE
[2019-11-25 08:06] LABS: PTH, INTACT 117 pg/mL (15-65)
[2019-11-26 08:11] LABS: *SPE A/G RATIO 1.1 (0.7-1.7); *SPE ALBUMIN 3.1 g/dL (2.9-4.4); *SPE ALPHA-1-GLOBULIN 0.4 g/dL (0.0-0.4); *SPE ALPHA-2-GLOBULIN 1.1 g/dL (0.4-1.0); *SPE BETA GLOBULIN 0.9 g/dL (0.7-1.3); *SPE GLOBULIN, TOTAL 2.9 g/dL (2.2-3.9); *SPE M-SPIKE Not Observed g/dL (Not Observed); *SPEGAMMA GLOBULIN 0.4 g/dL (0.4-1.8)
== END 2019-11-24 13:45 | disposition expired | DRG 689 ==
LOC: ER 18:10 → MEDSG2 20:47 → ICU 11-24 08:37
PROVIDERS: ADMIT Internal Medicine; ATTEND Nurse Practitioner Acute Care
DX: N39.0 Urinary tract infection, site not specified (principal); N17.0 Acute kidney failure with tubular necrosis; G93.41 Metabolic encephalopathy; I60.8 Other nontraumatic subarachnoid hemorrhage; I61.2 Nontraumatic intracerebral hemorrhage in hemisphere, unspecified; G93.5 Compression of brain; D68.69 Other thrombophilia; E87.2 Acidosis; G11.9 Hereditary ataxia, unspecified; I82.493 Acute embolism and thrombosis of other specified deep vein of lower extremity, bilateral; Z51.5 Encounter for palliative care; F03.90 Unspecified dementia, unspecified severity, without behavioral disturbance, psychotic disturbance, mood disturbance, and anxiety; F32.9 Major depressive disorder, single episode, unspecified; F41.9 Anxiety disorder, unspecified; G62.9 Polyneuropathy, unspecified; I10 Essential (primary) hypertension; M19.90 Unspecified osteoarthritis, unspecified site; M62.84 Sarcopenia; Z91.81 History of falling; M81.0 Age-related osteoporosis without current pathological fracture; Z66 Do not resuscitate; R40.2412 Glasgow coma scale score 13-15, at arrival to emergency department; F09 Unspecified mental disorder due to known physiological condition; Z79.83 Long term (current) use of bisphosphonates
CPT/HCPCS: 36415; 36600; 70450-TC; 71045-TC; 80048-TC; 80053-TC; 80076-TC; 81000-TC; 82550-TC; 82803-TC; 82962-TC; 83605-TC; 83735-TC; 83970; 84100-TC; 84155; 84165; 84484-TC; 85025-TC; 85730-TC; 87040-TC; 87081-TC; 87086-TC; 93970-TC; G0378; J0360; J0696; J1650; J2405; J3370; J7030; J7060